=== PATIENT | female | born 1975 | race Two or more races ===

== ENCOUNTER → 2017-11-01 | Emergency (ER) | payer SELFPAY ==
[~2017-11-01] VITALS: Ht 160 cm; Wt 81.6 kg
[~2017-11-01] MED LIST: CEPHALEXIN500 MG ORAL; DiphenhydrAMINE 50mg/ml Inj IVP ONE; Ketorolac 30mg Inj IV ONE; Metoclopramide 10mg/2ml Inj IVP ONE
[2017-11-01 18:01] VITALS: BP 155/95
--- NOTE | 2017-11-01 18:22 | Emergency Room Report ---
History of Present Illness General Chief Complaint: Headache Source: Patient (Migue Villalobos) Present Illness HPI 42-year-old female patient presents ER complaining of headache the past day. Reports headache began when she woke up. Reports using ice packs with mild relief of symptoms. Patient also reports high blood pressure for the past few days, states that her blood pressure was checked using her friend's at home blood pressure machine. Denies history of hypertension or cardiovascular disease. Reports headache is in the front of her head, feels like increased pressure. Denies history of similar headaches in the past, states this REBOLLEDO is worse and different. Denies history of other disease. Denies tinnitus or vertigo. Also complains of dizziness when standing. Denies chest pain, shortness of breath, abdominal pain. Reports last menstrual period a few weeks ago and normal for her. Also complains of bump on the top of her head that has been there for "a while". Denies acute injury or history of injury. Denies other acute symptoms. reports history of nasal congestion about a week ago. denies neck pain. (Migue Villalobos) Allergies: Coded Allergies: No Known Allergies (Unverified , 11/01/17) Patient History Past Medical History: see triage record Last Menstrual Period: 10/19/17 Reviewed Nursing Documentation: PMH: Agreed; PSxH: Agreed (Migue Villalobos) Last Menstrual Period: 10/19/17 Now: No (Everton Brown M.D.) Nursing Documentation-PMH Hx Hypertension: Yes (Migue Villalobos) Review of Systems All Other Systems: negative except mentioned in HPI (Migue Villalobos) Physical Exam Vital Signs Date Time Temp Pulse Resp B/P (MAP) Pulse Ox O2 Delivery O2 Flow Rate FiO2 11/01/17 17:50 98.2 95 18 155/95 95 Room Air 98.2 Sp02 EP Interpretation: reviewed, normal General Appearance: well appearing, no apparent distress, alert, GCS 15, non- toxic Head: normocephalic, atraumatic, other - no tenderness to palpation of frontal , maxillary sinuses bilaterally, no tenderness to palpation of the temporal arteries Eyes: bilateral eye normal inspection, bilateral eye PERRL ENT: hearing grossly normal, normal pharynx, no angioedema, normal voice, TMs + canals normal, uvula midline, moist mucus membranes, nasal congestion Neck: full range of motion, thyroid normal, no bony tend Respiratory: lungs clear, normal breath sounds, no rhonchi, no respiratory distress, no accessory muscle use, no wheezing, speaking full sentences Cardiovascular #1: regular rate, rhythm, no edema Cardiovascular #2: 2+ radial (R), 2+ radial (L) Gastrointestinal: non tender, soft, no mass, non-distended, no guarding, no rebound Genitourinary: no CVA tenderness Musculoskeletal: back normal, digits/nails normal, gait/station normal, normal range of motion, non-tender Neurologic: alert, oriented x3, responsive, motor strength/tone normal, sensory intact, cerebellar normal, normal gait, speech normal, other - negative Kernig, negative Brudzinski Psychiatric: mood/affect normal Skin: no rash Lymphatic: no adenopathy (Migue Villalobos) Medical Decision Making PA Attestation Dr. Brown is my supervising Physician whom patient management has been discussed with. (Migue Villalobos PRickyARicky) Diagnostic Impression: Primary Impression: Headache Qualified Codes: R51 - Headache Additional Impressions: Elevated blood pressure reading Urinary tract infection Qualified Codes: N30.00 - Acute cystitis without hematuria ER Course Pt presents to ED c/o headache. DDX considered but are not limited to migraine, cluster REBOLLEDO, tension REBOLLEDO, meningitis, ICH, meningitis, HTN, influenza, UTI, sinusitis, subarachnoid hemorrhage, temporal arteritis. negative Kernig, negative Brudzinski, low suspicion for meningitis. VITAL SIGNS are WNL, patient is afebrile. mild elevation of blood pressure, will order labs to rule out underlying pathology. Ordered labs, x-ray, CT head and medication. ER COURSE Due to new-onset of headache, will order CT head. Patient physical exam benign. patient advised on benefits of diet and exercise. Does not believe patient needs to be started on hypertension medications at this time. Patient declined pain medication at this time. Patient stating she is less concerned about headache at this time and more concerned with HTN medication. Informed patient that primary care provider usually will begin hypertension medications so that they can be monitored by them. F/u with PCP for further treatment and referral. 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 patient labs not complete at this time. Patient advised on risks of signing out AMA including but not limited to . Following AMA status, contacted patient, informed patient of lab results. Form patient likely UTI. Informed patient that UTI may be cause of headache symptoms. Will provide antibiotic medication for patient, sent the patient pharmacy. Instructed patient that she needs to follow up with PCP for further treatment and referral as needed. - Please note that this Emergency Department Report was dictated using [employer] driver's offsider technology software, occasionally this can lead to erroneous entry secondary to interpretation by the dictation equipment. Labs Test 11/01/17 18:42 White Blood Count 11.8 K/UL (4.8-10.8) Red Blood Count 5.55 M/UL (4.20-5.40) Hemoglobin 15.7 G/DL (12.0-16.0) Hematocrit 47.7 % (37.0-47.0) Mean Corpuscular Volume 86 FL (80-99) Mean Corpuscular Hemoglobin 28.3 PG (27.0-31.0) Mean Corpuscular Hemoglobin Concent 32.9 G/DL (32.0-36.0) Red Cell Distribution Width 11.2 % (11.6-14.8) Platelet Count 338 K/UL (150-450) Mean Platelet Volume 6.7 FL (6.5-10.1) Neutrophils (%) (Auto) 64.6 % (45.0-75.0) Lymphocytes (%) (Auto) 26.7 % (20.0-45.0) Monocytes (%) (Auto) 6.1 % (1.0-10.0) Eosinophils (%) (Auto) 1.7 % (0.0-3.0) Basophils (%) (Auto) 1.0 % (0.0-2.0) Erythrocyte Sedimentation Rate 3 MM/HR (0-20) Prothrombin Time 9.5 SEC (9.30-11.50) Prothromb Time International Ratio 0.9 (0.9-1.1) Activated Partial Thromboplast Time 29 SEC (23-33) Urine Color Suad Urine Appearance Slightly cloudy Urine pH 5 (4.5-8.0) Urine Specific [place] 1.025 (1.005-1.035) Urine Protein 1+ (NEGATIVE) Urine Glucose (UA) Negative (NEGATIVE) Urine Ketones Negative (NEGATIVE) Urine Occult Blood 2+ (NEGATIVE) Urine Nitrite Negative (NEGATIVE) Urine Bilirubin Negative (NEGATIVE) Urine Ictotest Negative Urine Urobilinogen Normal MG/DL (0.0-1.0) Urine Leukocyte Esterase 1+ (NEGATIVE) Urine RBC 5-10 /HPF (0 - 2) Urine WBC 10-15 /HPF (0 - 2) Urine Squamous Epithelial Cells Many /LPF (NONE/OCC) Urine Calcium Oxalate Crystals Many /LPF (NONE) Urine Bacteria Moderate /HPF (NONE) Sodium Level 139 MMOL/L (136-145) Potassium Level 3.8 MMOL/L (3.5-5.1) Chloride Level 104 MMOL/L (98-107) Carbon Dioxide Level 29 MMOL/L (21-32) Anion Gap 6 mmol/L (5-15) Blood Urea Nitrogen 19 mg/dL (7-18) Creatinine 0.9 MG/DL (0.55-1.30) Estimat Glomerular Filtration Rate > 60 mL/min (>60) Glucose Level 96 MG/DL (74-106) Calcium Level 9.3 MG/DL (8.5-10.1) Total Bilirubin 0.2 MG/DL (0.2-1.0) Aspartate Amino Transf (AST/SGOT) 15 U/L (15-37) Alanine Aminotransferase (ALT/SGPT) 31 U/L (12-78) Alkaline Phosphatase 89 U/L (46-116) Total Creatine Kinase 93 U/L (26-308) Creatine Kinase MB 1.0 NG/ML (0.0-3.6) Creatine Kinase MB Relative Index 1.0 Troponin I 0.000 ng/mL (0.000-0.056) Pro-B-Type Natriuretic Peptide 59 pg/mL (0-125) Total Protein 8.2 G/DL (6.4-8.2) Albumin 3.8 G/DL (3.4-5.0) Globulin 4.4 g/dL Albumin/Globulin Ratio 0.9 (1.0-2.7) (Migue Villalobos P.A.) ER Course Please see above note. Patient discussed in detail and then examined. Patient ambulatory in NAD without signs of meningismus. Grossly normal neurologic exam. She states she has to go home to care for daughter. She reports to me that the headache is improved. I discussed risk of due to bleeding inside of her head. She understands but feels better and as to go home. AMA signed. (Everton Brown M.D.) Chest X-Ray Diagnostic Results Chest X-Ray Diagnostic Results : Chest X-Ray Ordered: Yes # of Views/Limited/Complete: 1 View Indication: Chest Pain EP Interpretation: Yes PA Xray: Interpretation reviewed, by supervising MD, and agrees with findings. Interpretation: no consolidation, no effusion, no pneumothorax, no acute cardiopulmonary disease Impression: No acute disease PA Scribe Text Lacho Villalobos PA-C (Migue Villalobos P.A.) CT/MRI/US Diagnostic Results CT/MRI/US Diagnostic Results : Imaging Test Ordered: CT head Impression negative for acute disease Mild mucosal thickening of sinuses (Migue Villalobos P.A.) Last Vital Signs Date Time Temp Pulse Resp B/P (MAP) Pulse Ox O2 Delivery O2 Flow Rate FiO2 11/01/17 18:01 98.2 88 18 155/95 95 Room Air 98.2 (Migue Villalobos P.ARicky) Status: improved (Everton Brown M.D.) Disposition: AGAINST MEDICAL ADVICE Condition: Improved Scripts Cephalexin* (KEFLEX*) 500 Mg Capsule 500 MG ORAL EVERY 12 HOURS, #14 CAP 0 Refills Prov: Migue Villalobos 11/01/17 Migue Villalobos November 01, 2017 18:22 Everton Brown M.D. November 02, 2017 02:27
[2017-11-01 18:52] LABS: APPEARANCE,URINE SLIGHTLY CLOUDY; BILIRUBIN, URINE NEGATIVE (NEGATIVE); COLOR,URINE AMBER; GLUCOSE, URINE (UA) NEGATIVE (NEGATIVE); KETONES,URINE NEGATIVE (NEGATIVE); LEUKOCYTE ESTERASE ,URINE 1+ (NEGATIVE); NITRITE,URINE NEGATIVE (NEGATIVE); PH,URINE 5 (4.5-8.0); PROTEIN,URINE 1+ (NEGATIVE); UROBILINOGEN,URINE NORMAL MG/DL (0.0-1.0)
[2017-11-01 18:54] LABS: EOSINOPHILS % (AUTO) 1.7 % (0.0-3.0); HEMATOCRIT 47.7 % (37.0-47.0); HEMOGLOBIN 15.7 G/DL (12.0-16.0); LYMPHOCYTES % (AUTO) 26.7 % (20.0-45.0); MEAN CORPUSCULAR VOLUME 86 FL (80-99); MONOCYTES % (AUTO) 6.1 % (1.0-10.0); NEUTROPHILS % (AUTO) 64.6 % (45.0-75.0); PLATELET COUNT 338 K/UL (150-450); RED BLOOD COUNT 5.55 M/UL (4.20-5.40); RED CELL DISTRIBUTION WIDTH 11.2 % (11.6-14.8); WHITE BLOOD COUNT 11.8 K/UL (4.8-10.8)
[2017-11-01 19:00] LABS: INR 0.9 (0.9-1.1)
[2017-11-01 19:05] LABS: ANION GAP 6 mmol/L (5-15); BLOOD UREA NITROGEN 19 mg/dL (7-18); CALCIUM 9.3 MG/DL (8.5-10.1); CARBON DIOXIDE 29 MMOL/L (21-32); CHLORIDE 104 MMOL/L (98-107); CREATININE 0.9 MG/DL (0.55-1.30); POTASSIUM 3.8 MMOL/L (3.5-5.1); SODIUM 139 MMOL/L (136-145)
[2017-11-01 19:20] LABS: ALANINE AMINOTRANSFERASE 31 U/L (12-78); ALBUMIN 3.8 G/DL (3.4-5.0); ALBUMIN/GLOBULIN RATIO 0.9 (1.0-2.7); ALKALINE PHOSPHATASE 89 U/L (46-116); ASPARTATE AMINO TRANSFERASE 15 U/L (15-37); BILIRUBIN,TOTAL 0.2 MG/DL (0.2-1.0); CREATINE KINASE 93 U/L (26-308)
--- NOTE | 2017-11-02 08:14 | Diagnostic Imaging Report ---
Indication: Headache Technique: Continuous helical CT scanning of the head was performed without intravenous contrast material. Axial and coronal 5 mm sections were generated. Dose: Total Dose Length Product - DLP [address] Dose Index - CTDIvol(s) 70.38 mGy. Automated exposure control was utilized for dose reduction. Comparison:None. Findings: The ventricular system is normal in size and configuration. There is no shift of midline structures. No abnormal extra-axial fluid collections are noted. There is no evidence of intracerebral bleeding. No other abnormal high or low density areas are noted within the brain. There is mucoperiosteal thickening in the sphenoid sinus. Impression: Minimal mucoperiosteal thickening in the sphenoid sinus. No intracranial abnormality. The above report is concordant with preliminary reading by [employer] . The CT scanner at [facility] is accredited by the [employer] and the scans are performed using protocols designed to limit radiation exposure to as low as reasonably achievable to attain images of sufficient resolution adequate for diagnostic evaluation.
--- NOTE | 2017-11-02 08:59 | Diagnostic Imaging Report ---
Indication: Chest pain Technique: XRAY Chest 1v Comparison: None. Findings: The cardiomediastinal silhouette is normal. The lungs are clear. There is no evidence of pleural fluid. The bones are unremarkable. Impression: Normal chest.
== END | disposition left against medical advice (07) ==
LOC: EMR 18:30
DX: R51 Headache (principal); I10 Essential (primary) hypertension; N39.0 Urinary tract infection, site not specified
CPT/HCPCS: 36415; 70450; 71045; 80053; 81003; 82550; 82553; 83880; 84484; 85025; 85610; 85651; 85730; 87086; 96374; 96375; 99284